=== PATIENT | female | born 1990 | race African-American/Black ===

== ENCOUNTER 2017-10-14 14:53 | Emergency (ER) | payer SELFPAY ==
[~2017-10-14] VITALS: Ht 170.2 cm; Wt 70.0 kg
[2017-10-14] MEDS ORDERED: AMLO2.5T45 PO (14:58)
[2017-10-14] MEDS ORDERED: ACETAMINOPHEN WITH CODEINE 300/30MG TABLET PO ONE (16:15)
[2017-10-14 21:13] VITALS: BP 135/80
== END 2017-10-14 21:17 | disposition home or self-care (01) ==
LOC: ER 14:58
DX: O9A.212 Injury, poisoning and certain other consequences of external causes complicating pregnancy, second trimester (principal); O16.2 Unspecified maternal hypertension, second trimester; S09.90XA Unspecified injury of head, initial encounter; Z3A.20 20 weeks gestation of pregnancy; W22.8XXA Striking against or struck by other objects, initial encounter; Y93.89 Activity, other specified; Y92.410 Unspecified street and highway as the place of occurrence of the external cause; Y99.8 Other external cause status
CPT/HCPCS: 99283; 99284

== ENCOUNTER 2017-12-05 12:16 | Emergency (ER) | payer MEDICAID, OTHER ==
[~2017-12-05] VITALS: Ht 170.2 cm; Wt 100.0 kg
[~2017-12-05 12:16] MED LIST: AMLO2.5T45 PO
[2017-12-05 12:21] VITALS: BP 136/88
== END 2017-12-05 14:48 | disposition left against medical advice (07) ==
LOC: ER 14:43
DX: R10.9 Unspecified abdominal pain (principal); N93.9 Abnormal uterine and vaginal bleeding, unspecified; Z53.21 Procedure and treatment not carried out due to patient leaving prior to being seen by health care provider

== ENCOUNTER 2018-02-10 09:25 | Emergency (ER) | payer OTHER ==
[~2018-02-10] VITALS: Ht 170.2 cm; Wt 79.0 kg
[2018-02-10 09:55] VITALS: BP 111/79
== END 2018-02-10 13:43 | disposition left against medical advice (07) ==
LOC: ER 10:38
DX: Z53.21 Procedure and treatment not carried out due to patient leaving prior to being seen by health care provider (principal)

== ENCOUNTER 2018-11-12 18:34 | Emergency (ER) | payer MEDICAID, OTHER ==
[~2018-11-12] VITALS: Ht 170.2 cm; Wt 100.0 kg
[2018-11-12 19:30] VITALS: BP 145/79
[2018-11-12 19:51] LABS: CHLORIDE 106 mEq/L (98-107)
[2018-11-12 19:55] LABS: EOSINOPHILS % 1.3 % (0.0-5.0); HEMATOCRIT. 42.6 % (36.0-48.0); LYMPHOCYTES % 30.6 % (20.0-50.0); MEAN CORPUSCULAR HEMOGLOBIN 28.5 pg (28.0-32.0); MEAN CORPUSCULAR VOLUME 86.5 fL (81.0-99.0); MEAN PLATELET VOLUME 8.8 fl (7.4-10.4); NEUTROPHILS % 61.1 % (40.0-76.0); PLATELET 294 x1000/uL (130-400); RED BLOOD CELL COUNT 4.92 mill/uL (4.2-5.4); RED CELL DISTRIBUTION WIDTH 13.7 % (11.6-14.6)
[2018-11-12 20:01] LABS: CLARITY URINE CLEAR (CLEAR); COLOR URINE YELLOW (YELLOW); KETONES URINE TRACE (NEGATIVE); LEUKOCYTE ESTERASE URINE 2+ (NEGATIVE); NITRITE URINE NEGATIVE (NEGATIVE); OCCULT BLOOD URINE NEGATIVE (NEGATIVE); PH URINE 5.5 (4.5-8.0); PROTEIN URINE NEGATIVE (NEGATIVE); SPECIFIC GRAVITY URINE 1.034 (1.005-1.030)
[2018-11-12 20:02] LABS: B-HCG QUANTITATIVE 772 mIU/mL (<3)
== END 2018-11-12 22:09 | disposition left against medical advice (07) ==
LOC: ER 19:49
DX: O23.41 Unspecified infection of urinary tract in pregnancy, first trimester (principal); O26.891 Other specified pregnancy related conditions, first trimester; N89.8 Other specified noninflammatory disorders of vagina; Z3A.01 Less than 8 weeks gestation of pregnancy
CPT/HCPCS: 36415; 81025; 84702; 86850; 86900; 99283

== ENCOUNTER 2019-07-31 15:42 | Emergency (ER) | payer MEDICAID, OTHER ==
[~2019-07-31] VITALS: Ht 175.3 cm; Wt 73.0 kg
[2019-07-31 15:47] VITALS: BP 122/75
[2019-07-31] MEDS ORDERED: BACITRACIN ZINC OINT UDPKT TOP ONE (17:45)
[2019-07-31] MEDS ORDERED: ACETAMINOPHEN WITH CODEINE 300/30MG TABLET PO ONE (17:45)
[2019-07-31] MEDS ORDERED: TETANUS, DIPHTHERIA, PERTUSSIS VAC/PF 0.5ML (>7YR OLD) IM ONE (17:45)
== END 2019-07-31 18:28 | disposition home or self-care (01) ==
LOC: ER 15:42
DX: L02.31 Cutaneous abscess of buttock (principal)
CPT/HCPCS: 90471; 90715; 99283

== ENCOUNTER 2020-01-10 14:13 | Emergency (ER) | payer MEDICAID ==
[~2020-01-10] VITALS: Ht 175.3 cm; Wt 91.0 kg
[2020-01-10] MEDS ORDERED: IBUPROFEN 600MG TABLET PO STA (15:06)
[2020-01-10] MEDS ORDERED: BACITRACIN ZINC OINT UDPKT TOP ONE (15:15)
[2020-01-10 16:00] VITALS: BP 115/62
== END 2020-01-10 16:35 | disposition home or self-care (01) ==
LOC: ER 14:13
DX: S61.210A Laceration without foreign body of right index finger without damage to nail, initial encounter (principal); S60.041A Contusion of right ring finger without damage to nail, initial encounter; Y04.1XXA Assault by human bite, initial encounter; Y93.89 Activity, other specified; Y92.89 Other specified places as the place of occurrence of the external cause
CPT/HCPCS: 73140; 81025; 99283

== ENCOUNTER 2020-07-02 02:32 | Emergency (ER) | payer MEDICAID ==
[~2020-07-02] VITALS: Ht 175.3 cm; Wt 91.0 kg
[2020-07-02] MEDS ORDERED: CEFTRIAXONE SODIUM 500 MG/VIAL IM ONE (03:45)
[2020-07-02 04:05] LABS: BASOPHILS % 0.8 % (0.0-2.0); EOSINOPHILS % 1.7 % (0.0-5.0); HEMATOCRIT. 37.2 % (36.0-48.0); HEMOGLOBIN. 12.2 g/dL (12.0-16.0); LYMPHOCYTES % 32.1 % (20.0-50.0); MEAN CORPUSCULAR HEMOGLOBIN 28.1 pg (28.0-32.0); MEAN CORPUSCULAR VOLUME 85.7 fL (81.0-99.0); MEAN PLATELET VOLUME 9.1 fl (7.4-10.4); MONOCYTES % 5.5 % (2.0-8.0); NEUTROPHILS % 59.9 % (40.0-76.0); PLATELET 263 x1000/uL (130-400); RED BLOOD CELL COUNT 4.34 mill/uL (4.2-5.4); RED CELL DISTRIBUTION WIDTH 13.5 % (11.6-14.6)
[2020-07-02 04:14] LABS: CLARITY URINE CLEAR (CLEAR); COLOR URINE YELLOW (YELLOW); KETONES URINE NEGATIVE (NEGATIVE); LEUKOCYTE ESTERASE URINE NEGATIVE (NEGATIVE); NITRITE URINE NEGATIVE (NEGATIVE); OCCULT BLOOD URINE NEGATIVE (NEGATIVE); PH URINE 6.5 (4.5-8.0); PROTEIN URINE NEGATIVE (NEGATIVE); SPECIFIC GRAVITY URINE 1.027 (1.005-1.030); UROBILINOGEN URINE 0.2 E.U./dL (0.2-1.0)
[2020-07-02 04:21] LABS: CHLORIDE 107 mEq/L (98-107)
[2020-07-02 04:30] LABS: *AMPHETAMINES SCREEN URINE NEGATIVE (NEGATIVE); *BARBITURATES SCREEN URINE NEGATIVE (NEGATIVE); *BENZODIAZEPINES SCREEN URINE NEGATIVE (NEGATIVE)
[2020-07-02 04:31] LABS: *COCAINE SCREEN URINE NEGATIVE (NEGATIVE); METHADONE URINE SCREEN NEGATIVE (NEGATIVE); OPIATES URINE SCREEN NEGATIVE (NEGATIVE); PHENCYCLIDINE URINE SCREEN NEGATIVE (NEGATIVE)
[2020-07-02 04:37] LABS: CANNABINOID URINE SCREEN PRESUMTIVE POSITIVE (NEGATIVE)
[2020-07-02 04:47] LABS: B-HCG QUANTITATIVE 30819 mIU/mL (<3)
[2020-07-02] MEDS ORDERED: METRONIDAZOLE 500MG TABLET PO SCH (05:00)
[2020-07-02 07:00] VITALS: BP 117/73
== END 2020-07-02 07:57 | disposition home or self-care (01) ==
LOC: ER 02:32
DX: O26.891 Other specified pregnancy related conditions, first trimester (principal); F15.10 Other stimulant abuse, uncomplicated; F17.290 Nicotine dependence, other tobacco product, uncomplicated; N76.0 Acute vaginitis; A64 Unspecified sexually transmitted disease; Z3A.08 8 weeks gestation of pregnancy
CPT/HCPCS: 36415; 76801; 80053; 80305; 81003; 84702; 85025; 86850; 86900; 86901; 93005; 96372; 99285; 99406; J0696

== ENCOUNTER 2020-08-27 09:42 | Emergency (ER) | payer MEDICAID ==
[~2020-08-27] VITALS: Ht 175.3 cm; Wt 91.0 kg
[2020-08-27 10:20] VITALS: BP 120/70
[2020-08-27 11:07] LABS: CLARITY URINE TURBID (CLEAR); COLOR URINE YELLOW (YELLOW); KETONES URINE NEGATIVE (NEGATIVE); LEUKOCYTE ESTERASE URINE NEGATIVE (NEGATIVE); NITRITE URINE NEGATIVE (NEGATIVE); OCCULT BLOOD URINE NEGATIVE (NEGATIVE); PH URINE >=9.0 (4.5-8.0); PROTEIN URINE NEGATIVE (NEGATIVE); UROBILINOGEN URINE 0.2 E.U./dL (0.2-1.0)
[2020-08-27 12:21] LABS: BASOPHILS % 0.7 % (0.0-2.0); EOSINOPHILS % 1.8 % (0.0-5.0); HEMATOCRIT. 38.4 % (36.0-48.0); HEMOGLOBIN. 12.6 g/dL (12.0-16.0); LYMPHOCYTES % 27.1 % (20.0-50.0); MEAN CORPUSCULAR HEMOGLOBIN 28.4 pg (28.0-32.0); MEAN CORPUSCULAR VOLUME 86.2 fL (81.0-99.0); MEAN PLATELET VOLUME 8.8 fl (7.4-10.4); NEUTROPHILS % 65.4 % (40.0-76.0); PLATELET 256 x1000/uL (130-400); RED BLOOD CELL COUNT 4.45 mill/uL (4.2-5.4); RED CELL DISTRIBUTION WIDTH 13.1 % (11.6-14.6)
[2020-08-27 12:27] LABS: CHLORIDE 106 mEq/L (98-107)
[2020-08-27 12:53] LABS: B-HCG QUANTITATIVE 7336 mIU/mL (<3)
== END 2020-08-27 12:30 | disposition home or self-care (01) ==
LOC: ER 09:51
DX: O26.892 Other specified pregnancy related conditions, second trimester (principal); R10.9 Unspecified abdominal pain; Z3A.16 16 weeks gestation of pregnancy
CPT/HCPCS: 36415; 76805; 80053; 81003; 84702; 85025; 93005; 99285; Z7610

== ENCOUNTER 2021-01-15 21:25 | Observation (INO) | payer MEDICAID ==
[~2021-01-15] VITALS: Ht 175.3 cm; Wt 99.8 kg
[~2021-01-15 21:25] MED LIST changes: +IBUP-2030 MT; +PENI500T MT
[2021-01-15] MEDS ORDERED: PNV1TABL76 PO (21:57)
[2021-01-15] MEDS ORDERED: FERR325T6 PO (21:57)
[2021-01-15] MEDS ORDERED: FOLI-43 PO (21:57)
[2021-01-15] MEDS ORDERED: ACETAMINOPHEN 500MG TABLET PO NR (22:15)
[2021-01-15 22:44] LABS: BASOPHILS % 0.3 % (0.0-2.0); EOSINOPHILS % 1.8 % (0.0-5.0); HEMATOCRIT. 37.1 % (36.0-48.0); HEMOGLOBIN. 12.5 g/dL (12.0-16.0); LYMPHOCYTES % 25.4 % (20.0-50.0); MEAN CORPUSCULAR HEMOGLOBIN 28.2 pg (28.0-32.0); MEAN CORPUSCULAR VOLUME 83.9 fL (81.0-99.0); MEAN PLATELET VOLUME 9.2 fl (7.4-10.4); MONOCYTES % 6.2 % (2.0-8.0); NEUTROPHILS % 66.3 % (40.0-76.0); PLATELET 242 x1000/uL (130-400); RED BLOOD CELL COUNT 4.42 mill/uL (4.2-5.4); RED CELL DISTRIBUTION WIDTH 14.3 % (11.6-14.6)
[2021-01-15 22:46] LABS: CLARITY URINE CLEAR (CLEAR); COLOR URINE YELLOW (YELLOW); KETONES URINE NEGATIVE (NEGATIVE); LEUKOCYTE ESTERASE URINE TRACE (NEGATIVE); NITRITE URINE NEGATIVE (NEGATIVE); OCCULT BLOOD URINE NEGATIVE (NEGATIVE); PROTEIN URINE NEGATIVE (NEGATIVE); SPECIFIC GRAVITY URINE 1.024 (1.005-1.030); UROBILINOGEN URINE 0.2 E.U./dL (0.2-1.0)
[2021-01-15] MEDS ORDERED: LACTATED RINGERS 1,000 ML IV SCH (23:45)
[2021-01-16 02:51] LABS: *BARBITURATES SCREEN URINE NEGATIVE (NEGATIVE); *BENZODIAZEPINES SCREEN URINE NEGATIVE (NEGATIVE); *COCAINE SCREEN URINE NEGATIVE (NEGATIVE)
[2021-01-16 02:52] LABS: *AMPHETAMINES SCREEN URINE NEGATIVE (NEGATIVE); CANNABINOID URINE SCREEN NEGATIVE (NEGATIVE); METHADONE URINE SCREEN NEGATIVE (NEGATIVE); OPIATES URINE SCREEN NEGATIVE (NEGATIVE); PHENCYCLIDINE URINE SCREEN NEGATIVE (NEGATIVE)
== END 2021-01-15 23:45 | disposition left against medical advice (07) ==
LOC: 8 EST LDRP 21:25
PROVIDERS: ADMIT Obstetrics & Gynecology; ATTEND Obstetrics & Gynecology
DX: Z04.3 Encounter for examination and observation following other accident (principal); O26.893 Other specified pregnancy related conditions, third trimester; R10.2 Pelvic and perineal pain; Z3A.35 35 weeks gestation of pregnancy; O99.891 Other specified diseases and conditions complicating pregnancy; M54.5 Low back pain; V49.9XXA Car occupant (driver) (passenger) injured in unspecified traffic accident, initial encounter; Y93.89 Activity, other specified; Y92.89 Other specified places as the place of occurrence of the external cause; Y99.8 Other external cause status
CPT/HCPCS: 36415; 59025; 76805; 76818; 80305; 81003; 85025; G0378

== ENCOUNTER 2021-03-07 20:10 | Emergency (ER) | payer MEDICAID ==
[~2021-03-07] VITALS: Ht 175.3 cm; Wt 100.0 kg
[~2021-03-07 20:10] MED LIST changes: -AMLO2.5T45 PO; +FERR325T6 PO; +FOLI-43 PO; -IBUP-2030 MT; -PENI500T MT; +PNV1TABL76 PO
[2021-03-07 20:57] VITALS: BP 143/83
[2021-03-07] MEDS ORDERED: CEFTRIAXONE SODIUM 500 MG/VIAL IM ONE (22:45)
[2021-03-07] MEDS ORDERED: LIDOCAINE HCL/PF 1% 10 MG/ML 5ML VIAL INFIL ONE (22:45)
[2021-03-07] MEDS ORDERED: DOXYCYCLINE HYCLATE 100MG CAPSULE PO ONE (22:45)
[2021-03-07] MEDS ORDERED: DOXY100C5 MT (22:51)
[2021-03-11 04:08] LABS: NEISSERIA GONORRHOEAE NAA Negative (Negative)
== END 2021-03-07 23:24 | disposition home or self-care (01) ==
LOC: ER 20:10
DX: Z11.3 Encounter for screening for infections with a predominantly sexual mode of transmission (principal)
CPT/HCPCS: 81025; 87491; 87591; 96372; 99283; J0696; J3490

== ENCOUNTER 2021-08-30 10:09 | Emergency (ER) | payer MEDICAID ==
[~2021-08-30] VITALS: Ht 175.3 cm; Wt 100.0 kg
[~2021-08-30 10:09] MED LIST changes: +DOXY100C5 MT
[2021-08-30] MEDS ORDERED: LIDOCAINE HCL/PF 1% 10 MG/ML 5ML VIAL INFIL ONE (10:30)
[2021-08-30] MEDS ORDERED: DOXYCYCLINE HYCLATE 100MG CAPSULE PO ONE (10:30)
[2021-08-30] MEDS ORDERED: CEFTRIAXONE SODIUM 500 MG/VIAL IM ONE (10:30)
[2021-08-30] MEDS ORDERED: DOXY-326 MT (10:32)
[2021-08-30] MEDS ORDERED: LIDOCAINE HCL 1% 50ML VIAL (10MG/ML) INFIL NR (11:00)
[2021-08-30 11:20] VITALS: BP 128/86
== END 2021-08-30 12:07 | disposition home or self-care (01) ==
LOC: ER 11:58
DX: Z20.2 Contact with and (suspected) exposure to infections with a predominantly sexual mode of transmission (principal); N89.8 Other specified noninflammatory disorders of vagina
CPT/HCPCS: 96372; 99283; J0696; J3490

== ENCOUNTER 2022-02-21 12:32 | Emergency (ER) | payer MEDICAID ==
[~2022-02-21] VITALS: Ht 175.3 cm; Wt 100.0 kg
[~2022-02-21 12:32] MED LIST changes: +DOXY-326 MT
[2022-02-21 12:43] VITALS: BP 143/109
[2022-02-21] MEDS ORDERED: CEPH500C2 MT (17:00)
[2022-02-21 17:13] LABS: CLARITY URINE TURBID (CLEAR); COLOR URINE DARK YELLOW (YELLOW); KETONES URINE TRACE (NEGATIVE); LEUKOCYTE ESTERASE URINE NEGATIVE (NEGATIVE); NITRITE URINE NEGATIVE (NEGATIVE); OCCULT BLOOD URINE NEGATIVE (NEGATIVE); PH URINE 5.5 (4.5-8.0); PROTEIN URINE TRACE (NEGATIVE); SPECIFIC GRAVITY URINE 1.034 (1.005-1.030); UROBILINOGEN URINE 0.2 E.U./dL (0.2-1.0)
== END 2022-02-21 17:22 | disposition home or self-care (01) ==
LOC: ER 13:40
DX: Z11.3 Encounter for screening for infections with a predominantly sexual mode of transmission (principal); F17.210 Nicotine dependence, cigarettes, uncomplicated
CPT/HCPCS: 81003; 81025; 99283

== ENCOUNTER 2023-02-21 14:27 | Emergency (ER) | payer MEDICAID ==
[~2023-02-21] VITALS: Ht 175.3 cm; Wt 104.0 kg
[~2023-02-21 14:27] MED LIST changes: +CEPH500C2 MT; -DOXY-326 MT; +DOXY-456 MT
[2023-02-21 14:30] VITALS: O2SAT 100
[2023-02-21] MEDS ORDERED: DOXY100C5 MT (16:45)
[2023-02-21] MEDS ORDERED: CEFTRIAXONE SODIUM 1 G/VIAL IM ONE (16:45)
[2023-02-21 17:03] LABS: CLARITY URINE CLOUDY (CLEAR); COLOR URINE YELLOW (YELLOW); GLUCOSE URINE NEGATIVE (NEGATIVE); KETONES URINE TRACE (NEGATIVE); LEUKOCYTE ESTERASE URINE NEGATIVE (NEGATIVE); NITRITE URINE NEGATIVE (NEGATIVE); OCCULT BLOOD URINE NEGATIVE (NEGATIVE); PH URINE 5.5 (4.5-8.0); PROTEIN URINE NEGATIVE (NEGATIVE); SPECIFIC GRAVITY URINE 1.028 (1.005-1.030); UROBILINOGEN URINE 0.2 E.U./dL (0.2-1.0)
[2023-02-21 17:05] LABS: BACTERIA URINE NONE SEEN; SQUAMOUS EPITHELIAL CELL URINE 1+ /lpf (RARE/1+); WBC URINE NONE SEEN /hpf (0-2); YEAST URINE NONE SEEN
[2023-02-21 18:41] VITALS: BP 134/89; PULSE 84; RESP 19; TEMP 98.1
[2023-02-25 09:10] LABS: CHLAMYDIA TRACHOMATIS NAA Negative (Negative); NEISSERIA GONORRHOEAE NAA Negative (Negative)
== END 2023-02-21 18:42 | disposition home or self-care (01) ==
LOC: ER 14:27
DX: A64 Unspecified sexually transmitted disease (principal); Z79.899 Other long term (current) drug therapy
CPT/HCPCS: 87491; 87591; 81003; 81025; 96372; 99283; J0696; Z7610 ×2

== ENCOUNTER 2023-03-30 18:33 | Emergency (ER) | payer MEDICAID ==
[~2023-03-30] VITALS: Ht 175.3 cm; Wt 108.0 kg
[2023-03-30 18:55] VITALS: BP 141/95; PULSE 82; RESP 20; TEMP 98.5; O2SAT 98
== END 2023-03-30 22:26 | disposition left against medical advice (07) ==
LOC: ER 18:33
DX: A64 Unspecified sexually transmitted disease (principal); Z53.21 Procedure and treatment not carried out due to patient leaving prior to being seen by health care provider
CPT/HCPCS: 99281